=== PATIENT | male | born 1970 | race Caucasian/White ===

== ENCOUNTER 2019-05-24 18:55 | Emergency (ER) | payer SELFPAY ==
--- NOTE | 2019-05-24 19:46 | RAD ---
RIGHT ANKLE RADIOGRAPHS THREE VIEWS: 05/24/19 PROVIDED CLINICAL HISTORY: Right ankle pain. FINDINGS: Conspicuous lateral malleolar soft tissue swelling. No evidence for fracture or other acute osseous abnormality. If there is persistent clinical concern, conservative management and follow-up imaging are advised. IMPRESSION: As above. POS: [facility]
--- NOTE | 2019-05-24 19:47 | RAD ---
RIGHT FOOT RADIOGRAPHS THREE VIEWS: 05/24/19 PROVIDED CLINICAL HISTORY: Pain status post injury. FINDINGS: No evidence for fracture or other acute osseous abnormality. If there is persistent clinical concern, conservative management and follow-up imaging are advised. IMPRESSION: As above. POS: [facility]
== END 2019-05-24 20:25 | disposition home or self-care (01) ==
LOC: ERS 18:55
DX: M25.571 Pain in right ankle and joints of right foot (principal); F17.210 Nicotine dependence, cigarettes, uncomplicated